=== PATIENT | female | born 1965 | race Caucasian/White ===

== ENCOUNTER → 2016-10-21 | Outpatient (CLI) | payer BC ==
[~2016-10-21] MED LIST: B POLLEN; BEE1CAP PO; BUPRTAB51 PO; CETI10TA84 PO; MULTTAB58 PO; VITA400C15 PO
[2016-10-21 10:10] VITALS: BP 118/78; PULSE 64; TEMP 36.8; O2SAT 97
--- NOTE | 2016-10-21 10:39 | Radiation Oncology Follow-Up ---
Radiation Oncology Follow-Up Date of Visit Oct 21, 2016. Reason For Visit Annual follow up Radiation Completion Date 02/09/12 Diagnosis (1) Malignant neoplasm of central portion of female breast Status: Resolved Onset Date: 09/08/2011 Histology Subtype: adenocarcinoma Stage: l (A) Permanent Comment: Abnormal left breast mammogram biopsy positive for poorly differentiated adenocarcinoma Estrogen receptor negative, progesterone receptor negative, HER-2/brian positive Status post left breast lumpectomy and sentinel lymph node biopsy Pathologic stage [id number] patient refused systemic chemotherapy Status post completion of radiation therapy left breast and chest wall completed 02/09/2012 Last Edited By: Candy Hayes on Oct 01, 2014 13:44 Interim History She has been doing well over this past year. She has noted no changes to her breast. There are no masses. She has a mild area of tenderness near the inframammary fold on the left. This is unchanged. There are no changes of axilla. She's had no swelling of her arm. She is up-to-date on mammography. She had a mammogram 02/25/2016. There was no evidence of malignancy. Recommendation for recheck mammogram in 12 months. BI-RADS Category 2. She continues regular follow-up with Dr. Rebollar. She denies any joint or bone pain. Her weight is stable. Previous PET scans performed in 2012 and 2014 with no evidence of metastatic disease. Allergies Coded Allergies: No Known Allergies (Unverified , 11/02/11) Home Medications Scheduled Bee Pollen (Bee Pollen), 1 CAP PO DAILY Bupropion (Wellbutrin-Xl), 300 MG PO DAILY Cetirizine (Zyrtec), 10 MG PO DAILY Multiple Vitamin (Multivitamin), 1 TAB PO DAILY Tocopheryl Acet,Dl-Alpha (Vitamin E), 400 INTER.UNIT PO DAILY Review of Systems Gastrointestinal: Symptoms: WNL Oral: Symptoms: No Problems Respiratory: Symptoms: WNL Urinary: Symptoms: WNL Skin: Symptoms: No Problems Breast: Right Upper Arm Measurement: 33.0 Right Mid Arm Measurement: 28.0 Right Wrist Measurement: 17.0 Left Upper Arm Measurement: 33.0 Left Mid Arm Measurement: 28.0 Left Wrist Measurement: 16.5 Arm Dominence: Right Physical Exam Vital Signs Date Time Temp Pulse Resp B/P (MAP) Pulse Ox O2 Delivery O2 Flow Rate FiO2 10/21/16 10:10 36.8 64 16 118/78 97 Fatigue: None General Appearance: no apparent distress Eyes: normal inspection, EOMI ENT: normal ENT inspection, hearing grossly normal Neck: no adenopathy, thyroid normal Respiratory/Chest: lungs clear, no respiratory distress, no accessory muscle use Breast: Pectus excavatum. Breast examination reveals well-healed incisions of the left breast. There are no masses there is mild tenderness in the area of the incision. There are palpable fibrous changes which are unchanged. There are no skin retractions or nipple changes. She does have telangiectasia which is very mild in the area of the incision only. There is no axillary adenopathy. Using the Plover score cosmesis she has a good outcome. The right breast showed no masses or tenderness and no axillary adenopathy. Cardiovascular: regular rate, rhythm, no gallop, no murmur Extremities: no pedal edema Neurologic/Psychiatric: no motor/sensory deficits, alert, normal mood/affect Skin: warm/dry Additional Studies Mammography as reviewed above. Assessment & Plan Plan: She has a recheck appointment with Dr. Rebollar in December. Continue follow-up with her primary care provider. She'll continue mammography on an annual basis. A follow-up appointment with our office was not given. She did asked to be released from follow-up at this point. She may call our office if she has any questions or concerns we be happy to see her. Total Time In Follow-Up I spent 20 minutes speaking to the patient performing examination. I spent 15 minutes reviewing information in completing this note. Copy To Yoshi Rebollar M.D.; Roni Stewart PA-C Problem Qualifiers (1) Malignant neoplasm of central portion of female breast: Estrogen receptor status: negative Laterality: left Qualified Codes: C50.112 - Malignant neoplasm of central portion of left female breast; Z17.1 - Estrogen receptor negative status [ER-]
== END | disposition home or self-care (01) ==
LOC: C.ONC 09:51
PROVIDERS: ATTEND Physician Assistant Medical
DX: Z08 Encounter for follow-up examination after completed treatment for malignant neoplasm (principal); Z92.3 Personal history of irradiation; Z85.3 Personal history of malignant neoplasm of breast

== ENCOUNTER 2017-03-07 13:42 | Emergency (ER) | payer BC ==
[~2017-03-07] VITALS: Ht 170.2 cm; Wt 96.0 kg
[~2017-03-07 13:42] MED LIST changes: -B POLLEN
[2017-03-07 13:46] VITALS: TEMP 36.5
[2017-03-07] MEDS ORDERED: SODIUM CHLORIDE 0.9% 1000ML 1,000 ML IV STA (13:51)
[2017-03-07] MEDS ORDERED: ADENOSINE IV SOLN 3 MG/ML 2 ML VIAL ONE (13:53)
[2017-03-07 14:08] VITALS: O2SAT 100; Ht 170.2 cm; Wt 96.0 kg
--- NOTE | 2017-03-07 14:18 | EMERGENCY ROOM VISIT NOTE ---
History Report prepared by Jose: Jordana Nash Under the Supervision of: Dr. Rafael Kaur D.O. 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 She notes that she had palpitations last week, though they did not last this long. She currently rates her pain an 8/10 in severity. She notes shortness of breath on exertion, mild chest pain, and swelling in her extremities. She notes normal appetite. She denies any history of arrhythmia. She regularly takes Wellbutrin. She notes no recent changes to her daily medications. She has a history of sinus headaches. 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 Review of Systems See HPI for pertinent positives & negatives. A total of 10 systems reviewed and were otherwise negative. Past Medical & Surgical Medical Problems: (1) Malignant neoplasm of central portion of female breast Family History No pertinent family history reported. Social History Smoking Status: Never Smoker Smokeless Tobacco Use: No Alcohol Use: none Drug Use: none Marital Status: Housing Status: lives with significant other Occupation Status: employed Current/Historical Medications Scheduled Bee Pollen (Bee Pollen), 1 CAP PO DAILY Bupropion (Wellbutrin-Xl), 300 MG PO DAILY Cetirizine (Zyrtec), 10 MG PO DAILY Cholecalciferol (Vitamin D), 1,000 UNITS PO DAILY Multiple Vitamin (Multivitamin), 1 TAB PO DAILY Tocopheryl Acet,Dl-Alpha (Vitamin E/Dl-Alpha), 400 UNITS PO DAILY Allergies Coded Allergies: No Known Allergies (Unverified , 03/07/17) Physical Exam Vital Signs Date Time Temp Pulse Resp B/P (MAP) Pulse Ox O2 Delivery O2 Flow Rate FiO2 03/07/17 15:48 72 23 106/85 98 03/07/17 15:16 68 21 115/81 98 Room Air 03/07/17 14:08 100 Room Air 03/07/17 14:08 100 Room Air 03/07/17 14:06 100 Room Air 03/07/17 13:58 76 03/07/17 13:54 165 03/07/17 13:46 36.5 169 20 97 Physical Exam GENERAL: Patient is awake, alert, and in no acute distress. Patient is resting comfortably and showing no signs of anxiety EYES: The conjunctivae are clear. The pupils are round and reactive. EARS, NOSE, MOUTH AND THROAT: The nose is without any evidence of any deformity. Mucous membranes are moist tongue is midline NECK: The neck is nontender and supple. RESPIRATORY: Normal respiratory effort is noted there is no evidence of wheezing rhonchi or rales CARDIOVASCULAR: Tachycardiac rate and regular rhythm noted there no murmurs noted to auscultation. GASTROINTESTINAL: The abdomen is soft. Bowel sounds are present in all quadrants. Abdomen is nontender MUSCULOSKELETAL/EXTREMITIES: There is no evidence of gross deformity full range of motion is noted in the hips and shoulders SKIN: There is no obvious evidence of any rash. There are no petechiae, pallor or cyanosis noted. NEUROLOGIC: Patient is awake alert and oriented x3 strength is symmetric patellar reflexes are 2+ bilaterally Medical Decision & Procedures ER Provider Diagnostic Interpretation: Radiology results as stated below per my review and radiologist interpretation: CHEST ONE VIEW PORTABLE CLINICAL HISTORY: Respiratory distress. Palpitations. Dizziness. COMPARISON STUDY: No previous studies for comparison. FINDINGS: The heart is normal in size. There is no focal pulmonary consolidation. There are no pleural effusions. The examination is rotated. Increased markings at the right medial lung base, likely related to technical factors.[ If symptoms persist, a PA and lateral study is recommended in follow-up. IMPRESSION: Rotated study. Apparent increased markings at the right lung base, likely related to technical factors. There is no lobar consolidation. There is no overt failure. Electronically signed by: Jamin Bailon M.D. 03/07/2017 2:43 PM Dictated Date/Time: 03/07/2017 2:41 PM Laboratory Results 03/07/17 13:55 Red Blood Count 5.19, Mean Corpuscular Volume 88.6, Mean Corpuscular Hemoglobin 29.7, Mean Corpuscular Hemoglobin Concent 33.5, Mean Platelet Volume 9.9, Neutrophils (%) (Auto) 60.4, Lymphocytes (%) (Auto) 29.4, Monocytes (%) (Auto) 8.6, Eosinophils (%) (Auto) 1.0, Basophils (%) (Auto) 0.5, Neutrophils # (Auto) 6.08, Lymphocytes # (Auto) 2.96, Monocytes # (Auto) 0.87, Eosinophils # (Auto) 0.10, Basophils # (Auto) 0.05 03/07/17 13:55 Test 03/07/17 13:55 White Blood Count 10.07 K/uL (4.8-10.8) Red Blood Count 5.19 M/uL (4.2-5.4) Hemoglobin 15.4 g/dL (12.0-16.0) Hematocrit 46.0 % (37-47) Mean Corpuscular Volume 88.6 fL (80-100) Mean Corpuscular Hemoglobin 29.7 pg (25-34) Mean Corpuscular Hemoglobin Concent 33.5 g/dl (32-36) Platelet Count 287 K/uL (130-400) Mean Platelet Volume 9.9 fL (7.4-10.4) Neutrophils (%) (Auto) 60.4 % Lymphocytes (%) (Auto) 29.4 % Monocytes (%) (Auto) 8.6 % Eosinophils (%) (Auto) 1.0 % Basophils (%) (Auto) 0.5 % Neutrophils # (Auto) 6.08 K/uL (1.4-6.5) Lymphocytes # (Auto) 2.96 K/uL (1.2-3.4) Monocytes # (Auto) 0.87 K/uL (0.11-0.59) Eosinophils # (Auto) 0.10 K/uL (0-0.5) Basophils # (Auto) 0.05 K/uL (0-0.2) RDW Standard Deviation 43.4 fL (36.4-46.3) RDW Coefficient of Variation 13.2 % (11.5-14.5) Immature Granulocyte % (Auto) 0.1 % Immature Granulocyte # (Auto) 0.01 K/uL (0.00-0.02) Prothrombin Time 10.0 SECONDS (9.0-12.0) Prothromb Time International Ratio 1.0 (0.9-1.1) Activated Partial Thromboplast Time 26.6 SECONDS (21.0-31.0) Partial Thromboplastin Ratio 1.0 Anion Gap 4.0 mmol/L (3-11) Est Creatinine Clear Calc Drug Dose 88.0 ml/min Estimated GFR () 85.8 Estimated GFR (Non- 74.0 BUN/Creatinine Ratio 22.8 (10-20) Calcium Level 9.5 mg/dl (8.5-10.1) Magnesium Level 2.3 mg/dl (1.8-2.4) Total Bilirubin 0.3 mg/dl (0.2-1) Aspartate Amino Transf (AST/SGOT) 13 U/L (15-37) Alanine Aminotransferase (ALT/SGPT) 26 U/L (12-78) Alkaline Phosphatase 122 U/L (45-117) Total Creatine Kinase 111 U/L (26-192) Creatine Kinase MB 1.9 ng/ml (0.5-3.6) Creatine Kinase MB Ratio 1.7 (0-3.0) Troponin I < 0.015 ng/ml (0-0.045) Total Protein 7.6 gm/dl (6.4-8.2) Albumin 4.0 gm/dl (3.4-5.0) Globulin 3.6 gm/dl (2.5-4.0) Albumin/Globulin Ratio 1.1 (0.9-2) Thyroid Stimulating Hormone (TSH) 1.800 uIu/ml (0.300-4.500) Free Thyroxine 0.90 ng/dl (0.80-1.60) Human Chorionic Gonadotropin, Qual NEG (NEG) Laboratory results per my review. Medications Administered Medications (Trade) Dose Ordered Sig/Ximena Route Start Time Stop Time Status Last Admin Dose Admin Sodium Chloride 1,000 ml @ 999 mls/hr Q1H1M STAT IV 03/07/17 13:51 03/07/17 14:51 DC 03/07/17 14:10 999 MLS/HR Adenosine (Adenosine Iv) 6 mg STK-MED ONCE .ROUTE 03/07/17 13:53 03/07/17 13:54 DC 03/07/17 14:11 6 MG ECG Indication: palpitations Rate (beats per minute): 166 Rhythm: SVT Findings: no ectopy, other (no acute ST segment abnormalities) Comparison ECG Date: no prior available Change: Repeat ECG showed NSR 77 Findings: No ectopy and no acute ST segments. SVT is resolved. ED Course 1350: The patient was evaluated in room A2. A complete history and physical examination were performed. 1351: Ordered NSS 1,000 ml @ 999 mls/hr IV 1353: Ordered Adenosine 6 mg IV 1525: I reassessed the patient at this time. She is feeling better and resting comfortably. I discussed the results and treatment plan with the patient. I answered all pertaining questions that she had. She expressed understanding and verbalized agreement. The patient will be discharged home. Medical Decision Prior records/ancillary studies reviewed. Triage Nursing notes reviewed. The patient's history was concerning for palpitations. Differential diagnosis: Etiologies such as premature contractions, electrolyte abnormality, cardiac dysrhythmia, thyroid dysfunction, pulmonary embolism, infection, gastrointestinal, as well as others were entertained. The patient is a 51-year-old female who presented to the emergency department for palpitations. The patient had a narrow complex tachycardia at approximately 160 beats per minute. Valsalva maneuvers were attempted but it did not relieve the patient's symptoms. The patient was given a fluid bolus as well as IV Adenosine. The patient had resolution of her symptoms and was found to be in normal sinus rhythm. I discussed the patient's laboratory and radiographic studies with her. She was feeling much better on subsequent reevaluation. She was encouraged to rest and avoid any strenuous activity. She was also encouraged to continue all medications as prescribed. I recommended that she discuss the need for further testing with her primary care physician such as echocardiogram and Holter monitor. She was also encouraged to return to the emergency department immediately if symptoms began again and did not resolve with Valsalva maneuver or if need arises. Medication Reconcilliation Current Medication List: was personally reviewed by me Blood Pressure Screening Patient's blood pressure: Normal blood pressure Impression Primary Impression: SVT (supraventricular tachycardia) Additional Impression: Palpitations Scribe Attestation The scribe's documentation has been prepared under my direction and personally reviewed by me in its entirety. I confirm that the note above accurately reflects all work, treatment, procedures, and medical decision making performed by me. Departure Information Dispostion Home / Self-Care Referrals Roni Stewart PA-C (PCP) Forms HOME CARE DOCUMENTATION FORM, IMPORTANT VISIT INFORMATION, Work Instructions Patient Instructions ED Tachycardia Pat PSVT, ED Valsalva Maneuver, My [facility] Additional Instructions Continue all medications as prescribed. Drink plenty clear liquids. Rest and avoid any strenuous echo to. Follow-up with your family doctor soon as possible. Discussed the possibility that you may require further testing such as an echocardiogram or Holter monitor to further evaluate the cause of your symptoms. Return to the emergency Department immediately if symptoms change worsen or the need arises. Problem Qualifiers
[2017-03-07 14:31] LABS: BASO % 0.5 %; BASO ABS # 0.05 K/uL (0-0.2); COMPLETE YES; IG% 0.1 %; LYMPH % 29.4 %; LYMPH ABS # 2.96 K/uL (1.2-3.4); MEAN CELL VOLUME 88.6 fL (80-100); MEAN CORPUSCULAR HEMOGLOBIN 29.7 pg (25-34); MEAN CORPUSCULAR HGB CONC 33.5 g/dl (32-36); MEAN PLATELET VOLUME 9.9 fL (7.4-10.4); MONO % 8.6 %; NEUT % 60.4 %; PLATELET COUNT 287 K/uL (130-400); RED BLOOD COUNT 5.19 M/uL (4.2-5.4); WHITE BLOOD COUNT 10.07 K/uL (4.8-10.8)
[2017-03-07 14:41] LABS: PREG INTERNAL NEGATIVE QC NEG CLEAR BACKGROUND; PREG INTERNAL POSITIVE QC POS CONTROL LINE
[2017-03-07] MEDS ORDERED: CHOL100010 PO (14:44)
[2017-03-07] MEDS ORDERED: VTME400 PO (14:44)
--- NOTE | 2017-03-07 14:44 | DIAGNOSTIC IMAGING REPORT ---
CHEST ONE VIEW PORTABLE CLINICAL HISTORY: Respiratory distress. Palpitations. Dizziness. COMPARISON STUDY: No previous studies for comparison. FINDINGS: The heart is normal in size. There is no focal pulmonary consolidation. There are no pleural effusions. The examination is rotated. Increased markings at the right medial lung base, likely related to technical factors.[ If symptoms persist, a PA and lateral study is recommended in follow-up. IMPRESSION: Rotated study. Apparent increased markings at the right lung base, likely related to technical factors. There is no lobar consolidation. There is no overt failure. Electronically signed by: Jamin Bailon M.D. 03/07/2017 2:43 PM Dictated Date/Time: 03/07/2017 2:41 PM
[2017-03-07 14:52] LABS: ALT/SGPT 26 U/L (12-78); BLOOD UREA NITROGEN 21 mg/dl (7-18); BUN/CREATININE RATIO 22.8 (10-20); CALCIUM 9.5 mg/dl (8.5-10.1); CARBON DIOXIDE 30 mmol/L (21-32); CHLORIDE 107 mmol/L (98-107); GLUCOSE 99 mg/dl (70-99); MAGNESIUM 2.3 mg/dl (1.8-2.4); POTASSIUM 4.7 mmol/L (3.5-5.1); SODIUM 141 mmol/L (136-145)
[2017-03-07 15:00] LABS: ALB/GLOB RATIO 1.1 (0.9-2); ALKALINE PHOSPHATASE 122 U/L (45-117); AST/SGOT 13 U/L (15-37); CKMB/CK RATIO 1.7 (0-3.0)
[2017-03-07 15:48] VITALS: BP 106/85; PULSE 72; O2SAT 98
== END 2017-03-07 15:45 | disposition home or self-care (01) ==
LOC: C.EDB 13:43 → C.EDA 15:45
DX: I47.1 Supraventricular tachycardia (principal); R00.2 Palpitations; R06.02 Shortness of breath; Z85.3 Personal history of malignant neoplasm of breast

== ENCOUNTER 2017-03-12 22:57 | Emergency (ER) | payer BC ==
[~2017-03-12] VITALS: Ht 170.2 cm; Wt 96.4 kg
[~2017-03-12 22:57] MED LIST changes: +CHOL100010 PO; -VITA400C15 PO; +VTME400 PO
[2017-03-12 22:59] VITALS: TEMP 36.4; Ht 170.2 cm; Wt 96.4 kg
[2017-03-12] MEDS ORDERED: ADENOSINE IV SOLN 3 MG/ML 2 ML VIAL ONE (23:04)
[2017-03-12] MEDS ORDERED: SODIUM CHLORIDE 0.9% 1000ML 1,000 ML IV STA (23:16)
--- NOTE | 2017-03-12 23:25 | EMERGENCY ROOM VISIT NOTE ---
History Report prepared by Jose: Jean Elliott Under the Supervision of: Dr. Rubin Boateng M.D. First contact with patient: 23:03 Chief Complaint: PALPITATIONS Stated Complaint: HEART PALPITATIONS History of Present Illness The patient is a 51 year old female who presents to the Emergency Room with complaints of palpitations that began 1.5 hours ago. She has a past medical history of SVT that occurred a couple of days ago. In the past, the patient states that she had some anxiety attacks, but never was diagnosed with SVT until recently. She notes that she is having some chest tightness. She denies any fevers, chest pain, shortness of breath, abdominal pain, back pain, trauma, injury, falls, swelling in her legs, or recent travel. She denies any medication changes, diet regimen changes, new foods, or new coffees. She notes that she does not sleep very well at night. She denies any family history of SVT. She denies any history of hypertension, hyperlipidemia, diabetes, or smoking. She is on Wellbutrin for her anxiety. Source of History: patient Onset: 1.5 hours ago Position: other (Heart) Symptom Intensity: moderate Quality: other (Increased heart rate) Timing: constant Associated Symptoms: No fevers, No chest pain, No SOB, No abdominal pain, No back pain Note: She is experiencing chest tightness. She denies any falls, trauma, injury, or swelling in her legs. Review of Systems See HPI for pertinent positives & negatives. A total of 10 systems reviewed and were otherwise negative. Past Medical & Surgical Medical Problems: (1) Malignant neoplasm of central portion of female breast Family History Patient reports no known family medical history. Social History Smoking Status: Never Smoker Smokeless Tobacco Use: No Alcohol Use: none Drug Use: none Marital Status: Housing Status: lives with significant other Occupation Status: employed Current/Historical Medications Scheduled Bupropion (Wellbutrin-Xl), 300 MG PO DAILY Cetirizine (Zyrtec), 10 MG PO DAILY Cholecalciferol (Vitamin D), 1,000 UNITS PO DAILY Metoprolol Succ (Toprol Xl) (Toprol-Xl), 25 MG PO DAILY Multiple Vitamin (Multivitamin), 1 TAB PO DAILY Tocopheryl Acet,Dl-Alpha (Vitamin E/Dl-Alpha), 400 UNITS PO DAILY Allergies Coded Allergies: No Known Allergies (Unverified , 03/12/17) Physical Exam Vital Signs Date Time Temp Pulse Resp B/P (MAP) Pulse Ox O2 Delivery O2 Flow Rate FiO2 03/13/17 00:07 81 20 117/75 98 Room Air 03/12/17 23:41 84 20 125/79 98 Room Air 03/12/17 23:11 167 03/12/17 23:05 Room Air 03/12/17 22:59 36.4 175 20 143/92 98 Room Air Physical Exam GENERAL: Patient is anxious appearing and in no acute distress. HEENT: No acute trauma, normocephalic atraumatic, mucous membranes moist, no nasal congestion, no scleral icterus. NECK: No stridor, no adenopathy, no meningismus, trachea is midline. LUNGS: No dyspnea. Clear to auscultation and equal bilaterally. No wheeze, no rhonchi. HEART: Tachycardic rate and regular rhythm. No murmurs, rubs, gallops appreciated. ABDOMEN: Soft, nontender, bowel sounds positive, no masses appreciated, no peritonitis. BACK: No midline tenderness, no CVA tenderness EXTREMITIES: Normal motion all extremities, no cyanosis, no edema. NEUROLOGIC: Alert and oriented, no acute motor or sensory deficits, no focal weakness, cranial nerves grossly intact. SKIN: No rash, no jaundice, no diaphoresis. Medical Decision & Procedures Medications Administered Medications (Trade) Dose Ordered Sig/Ximena Route Start Time Stop Time Status Last Admin Dose Admin Adenosine (Adenosine Iv) 18 mg STK-MED ONCE .ROUTE 03/12/17 23:04 03/12/17 23:05 DC 03/12/17 23:22 18 MG Sodium Chloride 1,000 ml @ 999 mls/hr Q1H1M STAT IV 03/12/17 23:16 03/13/17 00:16 DC 03/12/17 23:16 999 MLS/HR Metoprolol Succinate (Toprol Xl Tab) 25 mg NOW STAT PO 03/12/17 23:27 03/12/17 23:30 DC 03/13/17 00:09 25 MG Metoprolol Succinate (Toprol Xl Tab) 25 mg NOW STAT PO 03/12/17 23:27 03/12/17 23:30 DC 03/13/17 00:10 25 MG ECG Indication: palpitations Rate (beats per minute): 168 Rhythm: SVT Findings: ST depression (nonspecific, likely rate related), no ectopy Change: Second ECG after Adenosine: NSR 97, no ectopy or acute ischemic change, incomplete RBBB. compared to ECG 03/07/17, similar morphology ED Course 2303: The patient was evaluated in room A4. A complete history and physical exam was performed. 2315: After administering Adenosine in a 6 mg dose then a 12 mg dose, the patient returned to normal sinus rhythm. Her chest tightness has now resolved. 2335: I reevaluated the patient at this time. She is feeling much better. We discussed her plan for future follow up. 0005: Reevaluated the patient. She continues to feel well. Discussed results and discharge instructions: She verbalized understanding and agreement. The patient is ready for discharge. Medical Decision Differential: NSR, SVT, PACs, PVCs, Cardiac Dysrhythmia, Endocrine Dysfunction, Eletrolyte/Metabolic Abnormality, Pulmonary Embolism, Infectious, GI, amongst other pathologies entertained. 51 yr old female arrives with palpitations. Similar to SVT episode last week with same mild chest tightness and feeling weak. EKG consistent with SVT. Given adenosine 6mg without improvement and then 12mg with break of SVT. Complete resolution of symptoms and feeling well. Given 1 L NSS bolus. Reviewed with cards who agrees with outpatient follow up and Toprol XL 25 mg daily. Patient monitored for 1 hour without further symptoms and in no distress. Will d/c with review of symptoms requiring RTED and stressed follow up with cardiology. Reviewed at length risks of starting Toprol and the risks of return of SVT. Patient stable and comfortable with this plan. Medication Reconcilliation Current Medication List: was personally reviewed by me Blood Pressure Screening Patient's blood pressure: Elevated blood pressure Blood pressure disposition: Elevated BP felt to be situational (Will have follow up with Cardiology) Impression Primary Impression: SVT (supraventricular tachycardia) Scribe Attestation The scribe's documentation has been prepared under my direction and personally reviewed by me in its entirety. I confirm that the note above accurately reflects all work, treatment, procedures, and medical decision making performed by me. Departure Information Dispostion Home / Self-Care Prescriptions Metoprolol Succ (Toprol Xl) (Toprol-Xl) 25 Mg Tabcr 25 MG PO DAILY, #30 TAB Prov: Rubin Boateng M.D. 03/12/17 Referrals Roni Stewart PA-C (PCP) Mk Sepulveda, DO Forms HOME CARE DOCUMENTATION FORM, IMPORTANT VISIT INFORMATION, WORK / SCHOOL INSTRUCTIONS Patient Instructions My [facility], Understanding Supraventricular Tachycardia SVT
[2017-03-12] MEDS ORDERED: METOPROLOL SUCC 25MG EXT REL TAB PO STA ×2 (23:27)
[2017-03-12] MEDS ORDERED: METO25TA3 PO (23:37)
[2017-03-13 00:07] VITALS: BP 117/75; PULSE 81; O2SAT 98
== END 2017-03-13 00:16 | disposition home or self-care (01) ==
LOC: C.EDB 22:58 → C.EDA 03-13 00:16
DX: I47.1 Supraventricular tachycardia (principal); F41.9 Anxiety disorder, unspecified; Z85.3 Personal history of malignant neoplasm of breast